=== PATIENT | male | born 1960 | race African-American/Black ===

== ENCOUNTER 2019-01-31 10:35 | Inpatient (IN) | payer MEDICAID ==
[~2019-01-31] VITALS: Ht 167.6 cm; Wt 33.6 kg
[2019-01-31] MEDS ORDERED: ACETAMINOPHEN 325MG TABLET PO ONE (12:45)
[2019-01-31 13:08] LABS: BASOPHILS % 0.5 % (0.0-2.0); EOSINOPHILS % 0.2 % (0.0-5.0); HEMATOCRIT. 44.8 % (42.0-52.0); HEMOGLOBIN. 15.1 g/dL (14.0-18.0); LYMPHOCYTES % 14.5 % (20.0-50.0); MEAN CORPUSCULAR HEMOGLOBIN 32.4 pg (28.0-32.0); MEAN CORPUSCULAR VOLUME 95.9 fL (80.0-94.0); MEAN PLATELET VOLUME 7.6 fl (7.4-10.4); MONOCYTES % 10.9 % (2.0-8.0); NEUTROPHILS % 73.9 % (40.0-76.0); PLATELET 254 x1000/uL (130-400); RED BLOOD CELL COUNT 4.67 mill/uL (4.7-6.1); RED CELL DISTRIBUTION WIDTH 13.8 % (11.6-14.6)
[2019-01-31 13:16] LABS: INR 1.1; PROTHROMBIN TIME 11.3 sec (9.6-11.0)
[2019-01-31 13:17] LABS: CHLORIDE 108 mEq/L (98-107)
[2019-01-31] MEDS ORDERED: IOHEXOL-300 100 ML BOTTLE ONE (13:47)
[2019-01-31 14:18] LABS: CLARITY URINE CLEAR (CLEAR); COLOR URINE YELLOW (YELLOW); KETONES URINE NEGATIVE (NEGATIVE); LEUKOCYTE ESTERASE URINE NEGATIVE (NEGATIVE); NITRITE URINE NEGATIVE (NEGATIVE); OCCULT BLOOD URINE NEGATIVE (NEGATIVE); PROTEIN URINE NEGATIVE (NEGATIVE); SPECIFIC GRAVITY URINE 1.014 (1.005-1.030); UROBILINOGEN URINE 0.2 E.U./dL (0.2-1.0)
[2019-01-31] MEDS ORDERED: DEXT 5%/0.9% NACL 1,000 ML IV ONE (15:00)
[2019-01-31] MEDS ORDERED: MORPHINE SULFATE 2 MG/ML CPJ (NOT FOR IM USE) IV PRN (16:15)
[2019-01-31] MEDS ORDERED: ONDANSETRON HCL 4MG/2ML INJ IV PRN (16:15)
[2019-01-31] MEDS ORDERED: ACETAMINOPHEN 325MG TABLET PO PRN (16:15)
[2019-01-31 17:42] VITALS: BP 164/96
[2019-01-31 17:49] VITALS: BP 164/96
[2019-01-31] MEDS: DEXT 5%/0.45% NACL 1000ML 1,000 ML IV SCH (18:01)
[2019-01-31 20:00] VITALS: BP 157/87
[2019-01-31 23:43] VITALS: BP 157/87
[2019-02-01] VITALS: BP 117/75
[2019-02-01 04:00] VITALS: BP 133/67
[2019-02-01 06:58] LABS: HEMATOCRIT. 41.5 % (42.0-52.0); HEMOGLOBIN. 13.8 g/dL (14.0-18.0); MEAN CORPUSCULAR VOLUME 96.6 fL (80.0-94.0); MEAN PLATELET VOLUME 7.8 fl (7.4-10.4); PLATELET 239 x1000/uL (130-400); RED CELL DISTRIBUTION WIDTH 14.2 % (11.6-14.6)
[2019-02-01 07:36] LABS: CHLORIDE 106 mEq/L (98-107)
[2019-02-01 08:00] VITALS: BP 114/57
[2019-02-01] MEDS: PANTOPRAZOLE SODIUM 40 MG/VIAL IV SCH (08:39)
[2019-02-01 12:47] LABS: PLATELET ESTIMATE NORMAL
[2019-02-01] MEDS: GUAIFENESIN-DM 200MG-20MG/10ML UDC PO PRN (16:24)
[2019-02-01 20:00] VITALS: BP 132/78
[2019-02-02] VITALS: BP 108/73
[2019-02-02] MEDS: GUAIFENESIN-DM 200MG-20MG/10ML UDC PO PRN ×2 (00:25→08:31)
[2019-02-02 04:00] VITALS: BP 133/74
[2019-02-02 08:00] VITALS: BP 117/64
[2019-02-02] MEDS: PANTOPRAZOLE SODIUM 40 MG/VIAL IV SCH (08:30)
[2019-02-02] MEDS: DEXT 5%/0.45% NACL 1000ML 1,000 ML IV SCH (10:00)
[2019-02-02 12:03] VITALS: BP 133/65
[2019-02-02 12:07] VITALS: BP 133/65
== END 2019-02-02 15:00 | disposition home or self-care (01) | DRG 254 ==
LOC: ER 10:35 → 6EST 14:48 → EDBEDREQ 15:00 → ENRESERV 15:55
PROVIDERS: ADMIT Internal Medicine; ATTEND Internal Medicine
DX: K40.30 Unilateral inguinal hernia, with obstruction, without gangrene, not specified as recurrent (principal); N17.9 Acute kidney failure, unspecified; K56.690 Other partial intestinal obstruction; E44.1 Mild protein-calorie malnutrition; E87.8 Other disorders of electrolyte and fluid balance, not elsewhere classified; F17.210 Nicotine dependence, cigarettes, uncomplicated; Z71.6 Tobacco abuse counseling; Z68.1 Body mass index [BMI] 19.9 or less, adult
CPT/HCPCS: 36415; 74177; 80048; 81003; 83605; 96365; 99285; C9113; J2270; Q9967